=== PATIENT | female | born 1950 | race African-American/Black ===

== ENCOUNTER 2020-10-09 09:40 | Emergency (ER) | payer MEDICARE, MEDICAID ==
[~2020-10-09] VITALS: Ht 165.1 cm; Wt 78.0 kg
[2020-10-09] MEDS ORDERED: MORPHINE SULFATE 4 MG/ML CPJ (NOT FOR IM USE) IV ONE (10:15)
[2020-10-09] MEDS ORDERED: ONDANSETRON HCL 4MG/2ML INJ IV ONE (10:15)
[2020-10-09 10:46] LABS: BASOPHILS % 0.7 % (0.0-2.0); EOSINOPHILS % 0.2 % (0.0-5.0); HEMATOCRIT. 40.7 % (36.0-48.0); HEMOGLOBIN. 13.5 g/dL (12.0-16.0); LYMPHOCYTES % 11.5 % (20.0-50.0); MEAN CORPUSCULAR HEMOGLOBIN 29.3 pg (28.0-32.0); MEAN CORPUSCULAR VOLUME 88.5 fL (81.0-99.0); MONOCYTES % 7.3 % (2.0-8.0); NEUTROPHILS % 80.3 % (40.0-76.0); PLATELET 286 x1000/uL (130-400); RED BLOOD CELL COUNT 4.61 mill/uL (4.2-5.4); RED CELL DISTRIBUTION WIDTH 14.8 % (11.6-14.6)
[2020-10-09 10:56] LABS: CHLORIDE 104 mEq/L (98-107)
[2020-10-09] MEDS ORDERED: MORPHINE SULFATE 2 MG/ML CPJ (NOT FOR IM USE) IV ONE ×2 (11:45→14:45)
[2020-10-09] MEDS ORDERED: KCL 20MEQ/100ML PREMIX 100 ML IV ONE (11:45)
[2020-10-09] MEDS ORDERED: POTASSIUM CHLORIDE 20MEQ TABLET SR PO NR (14:30)
[2020-10-09] MEDS ORDERED: MORPHINE SULFATE 2 MG/ML CPJ (NOT FOR IM USE) IV PRN (15:00)
[2020-10-09] MEDS ORDERED: DILTIAZEM HCL 30MG TABLET PO NR (15:00)
[2020-10-09] MEDS ORDERED: ASPIRIN 81MG TABLET PO SCH (15:00)
[2020-10-09 16:10] LABS: INR 1.1; PROTHROMBIN TIME 11.4 sec (9.6-11.0)
[2020-10-09 17:43] VITALS: BP 152/60
[2020-10-09] MEDS ORDERED: ENOXAPARIN 80MG/0.8ML SYR SUBCUT SCH (18:00)
[2020-10-09] MEDS ORDERED: DILTIAZEM HCL 30MG TABLET PO SCH (22:00)
== END 2020-10-09 18:49 | disposition short-term general hospital (02) ==
LOC: ER 09:40 → SUPCPDRO 14:50 → ER 18:49
DX: M12.0 Chronic postrheumatic arthropathy [Jaccoud] (principal); M25.552 Pain in left hip; I10 Essential (primary) hypertension; I48.91 Unspecified atrial fibrillation; D68.59 Other primary thrombophilia; R26.89 Other abnormalities of gait and mobility; E87.6 Hypokalemia; W01.0XXA Fall on same level from slipping, tripping and stumbling without subsequent striking against object, initial encounter; Y93.9 Activity, unspecified; Y92.9 Unspecified place or not applicable; Z88.6 Allergy status to analgesic agent; Z20.822 Contact with and (suspected) exposure to COVID-19
CPT/HCPCS: 36415; 70450; 71045; 72170; 72192; 73560; 80053; 82962; 83735; 85025; 85610; 87426; 93005; 96365; 96375; 96376; 99285; J2270; J2405; J3480

== ENCOUNTER 2021-09-09 08:02 | Inpatient (IN) | payer MEDICARE, MEDICAID ==
[~2021-09-09] VITALS: Ht 157.5 cm; Wt 77.2 kg
[2021-09-09] MEDS ORDERED: MORPHINE SULFATE 4 MG/ML CPJ (NOT FOR IM USE) IV STA (08:26)
[2021-09-09 09:24] LABS: CHLORIDE 109 mEq/L (98-107)
[2021-09-09 09:31] LABS: HEMATOCRIT. 35.5 % (36.0-48.0); HEMOGLOBIN. 11.7 g/dL (12.0-16.0); MEAN CORPUSCULAR HEMOGLOBIN 27.7 pg (28.0-32.0); MEAN CORPUSCULAR VOLUME 84.4 fL (81.0-99.0); MEAN PLATELET VOLUME 9.5 fl (7.4-10.4); PLATELET 317 x1000/uL (130-400); RED BLOOD CELL COUNT 4.21 mill/uL (4.2-5.4); RED CELL DISTRIBUTION WIDTH 15.4 % (11.6-14.6)
[2021-09-09] MEDS ORDERED: SODIUM CHLORIDE 0.9% 1,000 ML IV ONE (10:30)
[2021-09-09 12:12] LABS: CLARITY URINE TURBID (CLEAR); COLOR URINE YELLOW (YELLOW); KETONES URINE NEGATIVE (NEGATIVE); LEUKOCYTE ESTERASE URINE 3+ (NEGATIVE); NITRITE URINE NEGATIVE (NEGATIVE); OCCULT BLOOD URINE 2+ (NEGATIVE); PROTEIN URINE NEGATIVE (NEGATIVE)
[2021-09-09 13:47] LABS: PLATELET ESTIMATE NORMAL
[2021-09-09] MEDS: FAMOTIDINE 20MG/2ML VIAL IV SCH (14:11)
[2021-09-09] MEDS: METRONIDAZOLE 500MG TABLET PO SCH (14:11)
[2021-09-09] MEDS: DEXT 5%/0.45% NACL 1000ML 1,000 ML IV SCH (14:11)
[2021-09-09] MEDS ORDERED: VANCOMYCIN HCL 1 GM/VIAL PO SCH (18:00)
[2021-09-09] MEDS: VANCOMYCIN 1000MG/20ML ORAL SOLN PO SCH (21:09)
[2021-09-10] VITALS (7 sets, daily range): BP systolic 106–153; BP diastolic 56–90
[2021-09-10] MEDS ORDERED: AMLO2.5T2 PO (00:28)
[2021-09-10] MEDS ORDERED: BACL-141 PO (00:28)
[2021-09-10] MEDS ORDERED: LOPE2CAP PO (00:28)
[2021-09-10] MEDS ORDERED: IBUP-2030 PO (00:28)
[2021-09-10] MEDS ORDERED: NALOXONE HCL 0.4 MG/ML 1ML VIAL IV PRN (01:45)
[2021-09-10] MEDS: METRONIDAZOLE 500MG TABLET PO SCH ×4 (01:57→21:25)
[2021-09-10] MEDS: HYDROCODONE/ACETAMINOPHEN 5/325MG TABLET PO PRN ×4 (01:57→19:08)
[2021-09-10] MEDS: VANCOMYCIN 1000MG/20ML ORAL SOLN PO SCH ×4 (01:58→20:17)
[2021-09-10] MEDS: DEXT 5%/0.45% NACL 1000ML 1,000 ML IV SCH ×2 (02:03→15:20)
[2021-09-10] MEDS: FAMOTIDINE 20MG/2ML VIAL IV SCH (10:20)
[2021-09-10] MEDS ORDERED: HYDRALAZINE 20MG/ML VIAL IV PRN (14:45)
[2021-09-10] MEDS ORDERED: ACETAMINOPHEN 325MG TABLET PO PRN (14:45)
[2021-09-10] MEDS ORDERED: ACETAMINOPHEN 650MG SUPP PR PRN (14:45)
[2021-09-10] MEDS ORDERED: IPRATROPIUM/ALBUTEROL 0.5-3(2.5)MG/3ML NEB HHN PRN (14:45)
[2021-09-10] MEDS ORDERED: BISACODYL 10MG SUPP PR PRN (14:45)
[2021-09-10 16:08] LABS: HEMATOCRIT. 32.7 % (36.0-48.0); HEMOGLOBIN. 10.9 g/dL (12.0-16.0); LYMPHOCYTES % 29.6 % (20.0-50.0); MEAN CORPUSCULAR HEMOGLOBIN 27.9 pg (28.0-32.0); MEAN CORPUSCULAR VOLUME 83.8 fL (81.0-99.0); MEAN PLATELET VOLUME 9.1 fl (7.4-10.4); NEUTROPHILS % 59.4 % (40.0-76.0); PLATELET 282 x1000/uL (130-400); RED CELL DISTRIBUTION WIDTH 15.7 % (11.6-14.6)
[2021-09-10 16:20] LABS: CHLORIDE 106 mEq/L (98-107)
[2021-09-10 16:25] LABS: INR 1.1
[2021-09-10] MEDS ORDERED: POTASSIUM CHLORIDE 20MEQ TABLET SR PO NR ×2 (17:00→22:00)
[2021-09-10] MEDS ORDERED: NA PHOS,M-B/NA PHOS,DI-BA ENEMA 118ML PR NR (17:00)
[2021-09-11] VITALS: BP 128/65
[2021-09-11] MEDS: VANCOMYCIN 1000MG/20ML ORAL SOLN PO SCH ×2 (01:12→12:09)
[2021-09-11 04:00] VITALS: BP 149/64
[2021-09-11] MEDS: DEXT 5%/0.45% NACL 1000ML 1,000 ML IV SCH ×2 (05:09→18:35)
[2021-09-11] MEDS: METRONIDAZOLE 500MG TABLET PO SCH ×2 (05:09→15:46)
[2021-09-11] MEDS: HYDROCODONE/ACETAMINOPHEN 5/325MG TABLET PO PRN ×2 (06:49→12:11)
[2021-09-11 07:23] LABS: BASOPHILS % 0.5 % (0.0-2.0); EOSINOPHILS % 1.4 % (0.0-5.0); HEMATOCRIT. 30.8 % (36.0-48.0); HEMOGLOBIN. 10.6 g/dL (12.0-16.0); LYMPHOCYTES % 15.4 % (20.0-50.0); MEAN CORPUSCULAR HEMOGLOBIN 28.6 pg (28.0-32.0); MEAN CORPUSCULAR VOLUME 83.2 fL (81.0-99.0); MEAN PLATELET VOLUME 9.4 fl (7.4-10.4); MONOCYTES % 8.4 % (2.0-8.0); NEUTROPHILS % 74.3 % (40.0-76.0); PLATELET 257 x1000/uL (130-400); RED BLOOD CELL COUNT 3.71 mill/uL (4.2-5.4); RED CELL DISTRIBUTION WIDTH 15.7 % (11.6-14.6)
[2021-09-11 07:51] LABS: CHLORIDE 107 mEq/L (98-107)
[2021-09-11 08:00] VITALS: BP 144/82
[2021-09-11] MEDS ORDERED: POTASSIUM CHLORIDE 20MEQ TABLET SR PO NR (11:00)
[2021-09-11 12:00] VITALS: BP 140/80
[2021-09-11] MEDS ORDERED: ENOXAPARIN 40MG/0.4ML SYR SUBCUT SCH (12:00)
[2021-09-11] MEDS: FAMOTIDINE 20MG/2ML VIAL IV SCH (12:11)
[2021-09-11] MEDS: METOCLOPRAMIDE HCL 10MG/2ML VIAL IV SCH ×2 (12:23→18:49)
[2021-09-11] MEDS ORDERED: MORPHINE SULFATE 2 MG/ML CPJ (NOT FOR IM USE) IV PRN (13:45)
[2021-09-11] MEDS ORDERED: LEVOFLOXACIN 500MG PREMIX 100 ML IV SCH (15:00)
[2021-09-11 16:00] VITALS: BP 138/89
== END 2021-09-11 19:22 | DRG 372 ==
LOC: ER 08:15 → MICUSO 12:10 → ENRESERV 20:10 → 8WST 20:19
PROVIDERS: ADMIT Internal Medicine; ATTEND Internal Medicine
DX: A04.72 Enterocolitis due to Clostridium difficile, not specified as recurrent (principal); N39.0 Urinary tract infection, site not specified; D25.9 Leiomyoma of uterus, unspecified; D64.9 Anemia, unspecified; E86.0 Dehydration; I10 Essential (primary) hypertension; I25.10 Atherosclerotic heart disease of native coronary artery without angina pectoris; K52.89 Other specified noninfective gastroenteritis and colitis; K57.30 Diverticulosis of large intestine without perforation or abscess without bleeding; Z20.822 Contact with and (suspected) exposure to COVID-19; M19.90 Unspecified osteoarthritis, unspecified site; K56.41 Fecal impaction; Q65.89 Other specified congenital deformities of hip; Z88.5 Allergy status to narcotic agent
CPT/HCPCS: 36415; 74018; 74176; 80048; 80053; 81003; 82270; 84145; 85025; 87015; 87045; 87426; 87427; 87449; 87493; 89055; 93005; 97162; 99285; C1893; J1650; J1956; J2270; J2765; J3370; J3490; J7030; J7040